=== PATIENT | female | born 1935 | race Caucasian/White ===

== ENCOUNTER 2019-09-11 20:21 | Inpatient (IN) ==
[2019-09-11] MEDS ORDERED: NS 1,000 ML IV ONE (21:09)
[2019-09-11] MEDS ORDERED: ZOFRAN IV ONE (21:09)
[2019-09-11] MEDS ORDERED: MORPHINE IV ONE (21:09)
[2019-09-11] MEDS ORDERED: TESSALON PO ONE (21:09)
--- NOTE | 2019-09-11 21:24 | Diag Imaging Result Doc PS360 ---
EXAM: CHEST-1 VIEW 09/11/2019 HISTORY: cough, sob TECHNIQUE: AP portable at 2115 COMMENT: There is questionable opacification in the costophrenic angle regions. The study is slightly underexposed. There are no previous studies. The heart size is not enlarged. IMPRESSION: Questionable atelectasis in the lower lobes bilaterally. Electronically signed by Darren Bess 09/11/2019 9:21 PM
[2019-09-11 21:31] LABS: EOS# 0.01 X1000 (0.0-0.7); EOS% 0.1 % (0.0-10.0); HEMATOCRIT 38.5 % (37.0-47.0); HEMOGLOBIN 12.8 g/dL (12.0-16.0); IMM GRAN# 0.02 X1000 (0.0-0.04); IMM GRAN% 0.2 % (0.0-0.5); LYMPH# 0.53 X1000 (1.2-3.4); MCH 27.2 PG (27-31); MCHC 33.2 g/dL (33-37); MCV 81.7 FL (81-99); MONO# 0.36 X1000 (0.11-0.59); MONO% 2.7 % (1.7-9.3); MPV 11.4 FL (7.4-10.4); NEUT# 12.24 X1000 (1.4-6.5); PLT 227 X1000 (130-400); RBC 4.71 XMIL (4.2-5.4); RDW 13.3 % (11.5-14.5); WBC 13.16 X1000 (4.8-10.8)
[2019-09-11 21:52] LABS: AGAP 15; ALB/GLOB RATIO 1.5; ALBUMIN 3.8 g/dL (3.5-5.0); ALKALINE PHOSPHATASE 77 U/L (32-104); BUN 20 mg/dL (8-22); CALCIUM 9.9 mg/dL (8.8-10.2); CHLORIDE 95 mmol/L (98-107); COSMO 276; CREATININE 0.8 mg/dL (0.5-0.9); ESTIMATED GFR > 60; GLUCOSE 196 mg/dL (70-104); GOT 12 U/L (10-30); GPT 5 U/L (10-36); SODIUM 134 mmol/L (136-145); TCO2 24 mmol/L (25-35); TOTAL PROTEIN 6.4 g/dL (6.3-8.3)
[2019-09-11] MEDS ORDERED: LEVAQUIN 750 MG/D5W 750 MG/150 ML IVPB IV ONE (23:30)
--- NOTE | 2019-09-11 23:46 | PROVIDER DOCUMENTATION ---
This chart was entered by Jeovany Oates Scribe, acting as scribe for Malik Yo MD. HPI-Chest Pain - General Chief Complaint: Chest Pain Stated Complaint: chest tightness Time Seen by Provider: 09/11/19 21:01 Source: patient, family Allergies/Adverse Reactions: Patient Allergies Allergy/AdvReac Type Severity Reaction Status Date / Time No Known Allergies Allergy Verified 09/11/19 21:09 - History of Present Illness-CP Nature of Presenting Problem: 83 yof presents to the ed with sinus/cold like problems and chest pains. pt states onset for 2 weeks. pt states this morning woke up was getting better , felt like crap laid around then went to bed later. pt states having onset chest pains occasionally (tightness). pt states " my heart skips beats sometimes" pt sates having force herself to vomit. Location: reports: other (pt states Lt side) Chest Pain Radiation: reports: no radiation Quality of Pain: reports: tightness Severity in ED: mild Onset/Duration: other (2 weeks) Timing: still present Context/Activities at Onset: reports: none Modifying Factors: worse with: movement Associated Symptoms: reports: nausea. denies: abdominal pain, fever/chills Aspirin Treatment Today: unknown Similar Symptoms Previously?: Yes (chest pains ) Recently Seen Here or By Another Healthcare Provider: No Review of Systems - Adult - REVIEW OF SYSTEMS - ADULT Constitutional: reports: no symptoms reported Eyes: reports: no symptoms reported Ears, Nose, Mouth & Throat: reports: see HPI, sinus problem. denies: ear pain, hoarseness Cardiovascular: reports: see HPI, chest pain. denies: heart murmur, palpitations Respiratory: reports: see HPI, cough. denies: shortness of breath, wheezing Gastrointestinal: reports: see HPI, nausea, vomiting. denies: abdominal pain, constipation, diarrhea Genitourinary: reports: no symptoms reported Musculoskeletal: reports: no symptoms reported Integumentary: reports: no symptoms reported Neurological: reports: no symptoms reported Psychiatric: reports: no symptoms reported Endocrine: reports: no symptoms reported Hematologic/Lymphatic: reports: no symptoms reported Allergic/Immunologic: reports: no symptoms reported All Other Systems: Reviewed and Negative Past History - Adult - PAST MEDICAL HISTORY-ADULT Review of Records: reports: Old Records Reviewed, Nursing Assessment Review, Medications Reviewed, Social history reviewed & non-contributory. Major Childhood Illnesses: reports: denies history Cardiovascular: reports: HTN Respiratory: reports: denies history Gastrointestinal: reports: denies history Obstetrical/Gynecological: reports: denies history Genitourinary: reports: denies history Musculoskeletal: reports: denies history Neurological: reports: denies history Psychiatric: reports: denies history Endocrine/Immune: reports: Diabetes Other Conditions: reports: denies history - PRIOR SURGERIES/PROCEDURES Surgical/Procedure History: reports: cholecystectomy, hysterectomy, , joint replacement (hip/knee) - IMMUNIZATION STATUS Childhood Immunizations: See Nurse Assessment Flu Vaccine: See Nurse Assessment - FAMILY HISTORY Family History: reviewed, not pertinent - SOCIAL HISTORY Smoking: quit greater than 1 year, cigarettes Substance Use: denies Physical Exam-General - PHYSICAL EXAM-ADULT Initial Vital Signs Reviewed: Yes - CONSTITUTIONAL General Appearance: appears well, alert, mild distress - CARDIOVASCULAR Cardiovascular: tachycardia (108) - CHEST (BREASTS) Chest/Breast: deferred - GENITOURINARY Female Genitalia/Pelvic Exam: deferred Hemoccult Exam: deferred - NEUROLOGIC Neurologic: grossly normal, no motor/sensory deficits - PSYCHIATRIC Psych/Mental Status: normal mood/affect, normal thought content, normal thought process, oriented x 3 - HEART Score HEART Score: Age: > or = 65 Years Progress - PLAN OF CARE/RESULTS Progress/Plan/Lab Results: Vital Signs - 8 hr 09/11/19 20:39 Temperature 98.8 F Pulse Rate 108 H Respiratory Rate 12 Blood Pressure 182/103 O2 Sat by Pulse Oximetry 93 L 09/11/19 21:18 Influenza Screen - Final Nasopharyngeal Laboratory Results - last 24 hr 09/11/19 09/11/19 09/11/19 21:18 21:18 21:18 WBC 13.16 H RBC 4.71 Hgb 12.8 Hct 38.5 MCV 81.7 MCH 27.2 MCHC 33.2 RDW Std Deviation 13.3 Plt Count 227 MPV 11.4 H Immature Gran % (Auto) 0.2 Neut % (Auto) 93.0 H Lymph % (Auto) 4.0 L Stark % (Auto) 2.7 Eos % (Auto) 0.1 Baso % (Auto) 0.0 Immature Gran # (Auto) 0.02 Neut # (Auto) 12.24 H Lymph # (Auto) 0.53 L Stark # (Auto) 0.36 Eos # (Auto) 0.01 Baso # (Auto) 0.00 Sodium 134 L Potassium 4.0 Chloride 95 L Carbon Dioxide 24 L Anion Gap 15 BUN 20 Creatinine 0.8 Estimated GFR/1.73 m2 > 60 BUN/Creatinine Ratio 25 Glucose 196 H Calculated Osmolality 276 Calcium 9.9 Total Bilirubin 0.60 AST 12 ALT 5 L Alkaline Phosphatase 77 Troponin T Vpe-X-Zzhggsavpun Pept 444 Total Protein 6.4 Albumin 3.8 Globulin 2.6 Albumin/Globulin Ratio 1.5 09/11/19 21:18 WBC RBC Hgb Hct MCV MCH MCHC RDW Std Deviation Plt Count MPV Immature Gran % (Auto) Neut % (Auto) Lymph % (Auto) Stark % (Auto) Eos % (Auto) Baso % (Auto) Immature Gran # (Auto) Neut # (Auto) Lymph # (Auto) Stark # (Auto) Eos # (Auto) Baso # (Auto) Sodium Potassium Chloride Carbon Dioxide Anion Gap BUN Creatinine Estimated GFR/1.73 m2 BUN/Creatinine Ratio Glucose Calculated Osmolality Calcium Total Bilirubin AST ALT Alkaline Phosphatase Troponin T < 0.010 Occ-H-Lktnyqppdyd Pept Total Protein Albumin Globulin Albumin/Globulin Ratio Orders Category Date Time Status CHEST-1 VIEW [RAD] Stat Exams 09/11/19 21:08 Completed CBC WITH ELECTRONIC DIFF [HEME] Stat Lab 09/11/19 21:18 Completed COMPREHENSIVE METABOLIC PANEL [CHEM] Stat Lab 09/11/19 21:18 Completed INFLUENZA SCREEN A/B Stat Lab 09/11/19 21:18 Completed PRO B-NATRIURETIC PEPTIDE Stat Lab 09/11/19 21:18 Completed TROPONIN T Stat Lab 09/11/19 21:18 Completed URINALYSIS [URINALYSIS] Stat Lab 09/11/19 21:08 Uncollected 0.9% Sodium Chloride Inj [Ns] 1,000 ml Med 09/11/19 21:09 Discontinued IV 999 mls/hr Benzonatate [Tessalon] Med 09/11/19 21:09 Discontinued 200 mg PO NOW ONE Levofloxacin 750 mg/D5w [Levaquin 750 mg/D5w] Med 09/11/19 23:30 Active 750 mg in 150 ml IV NOW Morphine Med 09/11/19 21:09 Discontinued 2 mg IV NOW ONE Ondansetron [Zofran] Med 09/11/19 21:09 Discontinued 4 mg IV NOW ONE EKG [EKG] Stat Ther 09/11/19 20:28 Ordered Result Diagrams: 09/11/19 21:18 09/11/19 21:18 - EKG 1 Time of EKG reading by physician:: 21:04 EKG Read and Signed by:: Malik Yo EKG Interpretation (*Must complete 3 of following elements*): Abnormal Rate: 109 Rhythm: sinus tachycardia w/ 1st degree AV block [place]: normal QRS: normal NC Interval: normal ST Wave: normal Comments: Lt anterior fascicular block - XRAY 1 XRAY Study: Chest Impression: See EMR Report (EXAM: CHEST-1 VIEW 09/11/2019 HISTORY: cough, sob TECHNIQUE: AP portable at 2114 COMMENT: There is questionable opacification in the costophrenic angle regions. The study is slightly underexposed. There are no previous studies. The heart size is not enlarged. IMPRESSION: Questionable atelectasis in the lower lobes bilaterally. Electronically signed by Darren Bess 09/11/2019 9:21 PM 09/11/192120 Interpreting Physician: Darren Bess MD Dictated Date/Time: 09/11/192120 cc: Malik Yo MD; Papa Monae MD) Departure - Departure Date of Disposition Decision: 09/11/19 Time of Disposition Decision: 23:45 DIAGNOSIS: Hypoxia Pneumonia Qualifiers: Pneumonia type: due to unspecified organism Laterality: right Lung location: lower lobe of lung Qualified Code(s): J18.1 - Lobar pneumonia, unspecified organism Disposition: ADMITTED INPATIENT 09 Certified Medical Emergency: Emergent Condition: Stable Referrals and Follow-Ups: Papa Monae MD [Primary Care Provider] - - Critical Care Note This patient required my direct & personal management of CC.: No Attestation - Physician/ SHAN Attestation Patient care was provided by Advanced Practice Provider:: No The physician spent face to face time with patient:: Yes Advanced Practice Provider documentation review:: Supervising physician onsite and consulted in the evaluation and care of this patient. The physician did have a face to face encounter with the patient. This chart was documented by the indicated scribe, (Jeovany Oates Scribe) and accurately reflects the services I performed and decisions made by me, Malik Yo MD, as attested by the provider's signature.
--- NOTE | 2019-09-12 01:24 | HISTORY AND PHYSICAL ---
PRIMARY CARE PHYSICIAN: Patient of Dr. Monae. REASON FOR ADMISSION: One-week history of progressive shortness of breath and cough productive of yellowish sputum. HISTORY OF PRESENT ILLNESS: Ms. Clary Diaz is an 83-year-old woman with past medical history of type 2 diabetes and hypertension who comes in today complaining of 1-week history of progressive shortness of breath, cough productive of yellowish sputum, but no fever and chills. This was preceded by 3 to 4 day history of "sinus infection." She tried elqi-utv-awwixri remedies with some modest success, but over the last couple days the symptoms got worse. She denies any particular close contacts. Denies any PND, orthopnea. She admits to having some chest pain in the left chest wall and it is worse with movement of her trunk, but no cough. No palpitations or lightheadedness. No associated anginal equivalent. REVIEW OF SYSTEMS: Notable for 3 loose, nonbloody stools. No abdominal pain. No genitourinary complaints. No focal neurological complaints. No polyuria or polydipsia. Otherwise, 12 system review was done. Positive findings per HPI. No pruritus. ALLERGIES: She says she is allergic to prednisone and penicillin. MEDICATION: Her medications are not listed at this time but metformin is 1 of them. SURGICAL HISTORY: Notable for hysterectomy, cholecystectomy, and cataract surgery, hemorrhoidectomy, knee surgery, hip surgery. FAMILY HISTORY: Notable for heart disease but no diabetes. SOCIAL HISTORY: She does not smoke, drink, or use drugs. Lives with her granddaughter. PHYSICAL EXAMINATION: GENERAL: Obese, elderly woman, no acute distress. A and O x3. Normal mood and affect. HEENT: Head is normocephalic, atraumatic. Eyes, TRAVON, EOMI. She is anicteric, not pale. ENT, oropharyngeal exam is grossly normal. No central cyanosis. NECK: Short and thick. No JVD or carotid bruit. No thyromegaly. VITAL SIGNS: Her blood pressure is 182/103, pulse is 108, respiratory rate 12, temperature is 98.8 degrees. She is 92% on room air. However, when she ambulates a few steps she desaturates into the low 80s. She also becomes very symptomatic and her heart rate goes up in the 120s. CHEST: Bibasilar crepitations are heard. No wheezes. CARDIOVASCULAR: First second heart sounds heard, 3/6 pansystolic murmur heard in the aortic area radiating to the neck. Her rhythm is regular. ABDOMEN: Protuberant and soft with mild tenderness in the right upper quadrant area. Bowel sounds are hypoactive. RECTAL: Exam deferred at this time. EXTREMITIES: No edema, clubbing or cyanosis. Pulses distally have good volume, regular, symmetrical. NEUROLOGICAL: No gross focal deficits. SKIN: Intact with no breakdown or lesion. Good turgor. MUSCULOSKELETAL: Muscular exam is grossly normal. ASSESSMENT: 1. Probable pneumonia. 2. Type 2 diabetes. 3. Hypertension. 4. Dehydration. PLAN: The patient will be admitted and started on Levaquin due to her questionable history allergies to penicillin. She will need an EKG done in 24 hours to make sure no QT prolongation ensues. In the meantime, she will be given breathing treatments. She will be on a sliding scale for her for diabetes but hold blood pressure medication. In the interim, we will consider starting patient on an ARB pending her home medications which she has no recollection of at this point in time. The patient might also need to be evaluated for short-term home O2 prior to discharge. I will order a noncontrast study to confirm my suspicion of possible pneumonia. Also, an echocardiogram needs to be ordered in view of the fact patient has a pansystolic murmur which she is not aware of, could be representing aortic stenosis. cc: MD Papa Bill MD MTDD
[2019-09-12] MEDS ORDERED: NS 1,000 ML IV SCH (01:38)
[2019-09-12] MEDS ORDERED: ZOFRAN IV PRN (01:38)
[2019-09-12] MEDS ORDERED: TYLENOL PO PRN (01:38)
--- NOTE | 2019-09-12 01:38 | EKG Report ---
Test Performed on : 09/11/2019 9:04:15 PM Test Reason : cp Blood Pressure : / mmHG Vent. Rate : 109 BPM Atrial Rate : 109 BPM P-R Int : 212 ms QRS Dur : 088 ms QT Int : 324 ms P-R-T Axes : 063 -53 045 degrees QTc Int : 436 ms Sinus tachycardia. with 1st degree AV block. Left anterior fascicular block Abnormal ECG No previous ECGs available Unconfirmed Result
[2019-09-12] MEDS: LOVENOX SUBQ SCH (02:07)
[2019-09-12] MEDS: COZAAR PO SCH ×3 (02:07→22:08)
[2019-09-12 04:23] LABS: BILIRUBIN URINE NEGATIVE (NEGATIVE); BLOOD URINE NEGATIVE (NEGATIVE); COLOR YELLOW; GLUCOSE URINE NEGATIVE (NEGATIVE); KETONE URINE NEGATIVE (NEGATIVE); LEUKOCYTES URINE SMALL (NEGATIVE); NITRITE URINE NEGATIVE (NEGATIVE); PROTEIN URINE NEGATIVE (NEGATIVE); SP GRAVITY URINE 1.014; TURBIDITY URINE CLEAR (CLEAR); URINE SOURCE CLEAN CATCH; UROBILINOGEN URINE NORMAL (NORMAL)
[2019-09-12 04:24] LABS: UR EPITHELIAL CELLS <10 /HPF (<10); URINE BACTERIA NEGATIVE /HPF; URINE RBC <10 /HPF (<10)
[2019-09-12] MEDS: DUONEB (A & A) INH SCH ×3 (05:27→15:38)
--- NOTE | 2019-09-12 08:20 | Diag Imaging Result Doc PS360 ---
EXAM: CT THORAX W/O CONTRAST 09/12/2019 HISTORY: hypoxia ?PNA TECHNIQUE: This exam was performed using automated exposure control, adjustment of mA or kV according to patient size, and/or use of iterative reconstruction technique. COMMENT: There are no previous studies available for comparison. There are nonspecific mediastinal nodes. There are coronary calcifications. There is a small pericardial effusion. There are calcified granulomata in the right upper lobe and one in the left upper lobe. There are some interstitial and platelike opacities in the left base. There are severe degenerative disc changes in the visualized spine. There is vacuum joint phenomenon in both sternoclavicular joints. IMPRESSION: Atelectasis plus minus fibrosis in the left lower lobe. Granulomatous changes. Small pericardial effusion. Electronically signed by Darren Bess 09/12/2019 8:18 AM
[2019-09-12 08:28] LABS: EOS# 0.05 X1000 (0.0-0.7); EOS% 0.7 % (0.0-10.0); HEMATOCRIT 34.2 % (37.0-47.0); HEMOGLOBIN 10.9 g/dL (12.0-16.0); LYMPH# 0.96 X1000 (1.2-3.4); LYMPH% 14.3 % (20.5-51.1); MCH 26.9 PG (27-31); MCHC 31.9 g/dL (33-37); MCV 84.4 FL (81-99); MONO# 0.55 X1000 (0.11-0.59); MONO% 8.2 % (1.7-9.3); MPV 11.4 FL (7.4-10.4); NEUT# 5.16 X1000 (1.4-6.5); NEUT% 76.8 % (42.2-75.2); PLT 185 X1000 (130-400); RBC 4.05 XMIL (4.2-5.4); RDW 13.4 % (11.5-14.5); WBC 6.72 X1000 (4.8-10.8)
[2019-09-12 08:58] LABS: AGAP 12; BUN 15 mg/dL (8-22); CALCIUM 8.7 mg/dL (8.8-10.2); CHLORIDE 100 mmol/L (98-107); COSMO 275; CREATININE 0.8 mg/dL (0.5-0.9); ESTIMATED GFR > 60; GLUCOSE 133 mg/dL (70-104); MAGNESIUM 1.4 mg/dL (1.5-2.7); POTASSIUM 3.7 mmol/L (3.5-5.1); SODIUM 136 mmol/L (136-145); TCO2 24 mmol/L (25-35)
[2019-09-12] MEDS ORDERED: TESSALON PO SCH (09:00)
[2019-09-12] MEDS: TESSALON PO SCH ×3 (09:15→22:08)
[2019-09-12] MEDS ORDERED: MAGNESIUM SULFATE 2 GM/S.W.I. 2 GM/50 ML IVPB IV ONE (10:52)
[2019-09-12] MEDS: NORVASC PO SCH (11:08)
[2019-09-12] MEDS: HUMALOG SUBQ SCH ×3 (11:10→22:10)
--- NOTE | 2019-09-12 14:11 | EKG Report ---
Test Performed on : 09/12/2019 09:16:50 AM Test Reason : drugs abx Blood Pressure : / mmHG Vent. Rate : 084 BPM Atrial Rate : 084 BPM P-R Int : 216 ms QRS Dur : 094 ms QT Int : 396 ms P-R-T Axes : 029 -34 030 degrees QTc Int : 467 ms Sinus rhythm. with 1st degree AV block. Left axis deviation Abnormal ECG When compared with ECG of 11-SEP-2019 21:04, (Unconfirmed) No significant change was found Confirmed by Rodolfo BATISTA, Silas ([id number]) on 09/14/2019 8:16:22 AM
--- NOTE | 2019-09-12 19:31 | PROGRESS NOTE ---
DATE: 09/12/2019 SUBJECTIVE: Ms. Diaz was admitted with chest congestion, cough, wheezing, shortness of breath. The patient also had some nausea and vomiting and diarrhea. The patient was not responding to outpatient treatment. Her admission history physical is noted. OBJECTIVE: Vital signs: Reviewed. Neck: Supple. No JVD. Lungs: Bibasilar crepitations, occasional wheezing. CVS: S1 and S2 heard. Abdomen: Soft, nontender. Bowel sounds present. ENTRY LEVEL MANUFACTURING ENGINEER: Alert, awake. Able to move all 4 limbs. CONSIDERATION: 1. Acute bronchitis, not responding to outpatient treatment. We will continue IV antibiotics, bronchodilator treatments and symptomatic treatment. 2. Diabetes mellitus. 3. Hypomagnesemia. Will supplement magnesium. 4. Continue the rest of the treatment. Urinalysis did reveal a mild urinary tract infection. Culture result is pending. PLAN: Overall plan discussed with the patient, and she is in agreement. cc: Papa Monae MD
[2019-09-12] MEDS: GLUCOPHAGE XR PO SCH (22:08)
[2019-09-13] MEDS: DUONEB (A & A) INH SCH ×5 (00:31→21:43)
[2019-09-13 04:56] LABS: ALLEN TEST YES; BE 1.1 mmoll (-3.0-3.0); BLOOD TYPE ARTERIAL; HCO3-(ACT) 25.8 mmoll (20.0-26.0); METHB 1.2 % (0.0-1.5); O2(CT) 15.4 mL/dL (15.0-23.0); O2HB 96.1 % (95.0-99.0); PCO2(98.6) 45 mmHg (35-45); PO2(98.6) 99 mmHg (60-100); SAMPLE BLOOD; SAO2 98.2 % (95.0-100.0); THB 11.3 g/dL (11.5-17.4); pH(98.6) 7.38 (7.35-7.45)
[2019-09-13 04:58] LABS: MODALITY CANNULA
[2019-09-13] MEDS: HUMALOG SUBQ SCH ×5 (06:54→22:10)
[2019-09-13] MEDS: LOVENOX SUBQ SCH (06:58)
[2019-09-13] MEDS: COZAAR PO SCH ×2 (09:31→22:09)
[2019-09-13] MEDS: GLUCOPHAGE XR PO SCH (09:31)
[2019-09-13] MEDS: TESSALON PO SCH ×3 (09:31→22:10)
[2019-09-13] MEDS: NORVASC PO SCH (09:32)
--- NOTE | 2019-09-13 11:33 | PROGRESS NOTE ---
DATE: 09/13/2019 SUBJECTIVE: The patient says she feels a little bit better but she is still nauseated. The diarrhea has gone away. Her breathing is better. OBJECTIVE: Blood pressure is 124/38, respirations 16, pulse 74, temperature 98.3 degrees Fahrenheit, oxygen saturation on 2 L is 97%.HEENT: She is normocephalic. EOMS intact. PERRLA. Throat clear. Lungs: Sound fairly clear to auscultation today. I heard a little wheeze when she coughed, but overall better. Heart: Regular rate and rhythm without murmurs, gallops or friction rubs. Abdomen: Soft. Active bowel sounds. No organomegaly or tenderness though she still complains of her nausea. Neurological: Intact grossly. ASSESSMENT: 1. Acute bronchitis not responding to outpatient treatment. 2. Diabetes mellitus. 3. Hypomagnesemia for which she has received a supplement. 4. Acute gastroenteritis which is improving. PLAN: Continue with current treatment. cc: MD Papa Woo Jr, MD
[2019-09-13] MEDS: LEVAQUIN 500 MG/D5W 500 MG/100 ML IVPB IV SCH (22:09)
[2019-09-14] MEDS: DUONEB (A & A) INH SCH ×4 (02:50→23:22)
[2019-09-14] MEDS: HUMALOG SUBQ SCH ×4 (06:12→21:05)
[2019-09-14] MEDS: LOVENOX SUBQ SCH (06:16)
[2019-09-14 07:33] LABS: BASO# 0.01 X1000 (0.0-0.2); BASO% 0.2 % (0.0-0.8); EOS# 0.11 X1000 (0.0-0.7); EOS% 1.7 % (0.0-10.0); HEMATOCRIT 34.2 % (37.0-47.0); HEMOGLOBIN 10.7 g/dL (12.0-16.0); LYMPH# 1.52 X1000 (1.2-3.4); LYMPH% 23.6 % (20.5-51.1); MCH 26.6 PG (27-31); MCHC 31.3 g/dL (33-37); MCV 85.1 FL (81-99); MONO# 0.53 X1000 (0.11-0.59); MONO% 8.2 % (1.7-9.3); MPV 11.3 FL (7.4-10.4); NEUT# 4.27 X1000 (1.4-6.5); NEUT% 66.3 % (42.2-75.2); PLT 180 X1000 (130-400); RBC 4.02 XMIL (4.2-5.4); RDW 13.6 % (11.5-14.5); WBC 6.44 X1000 (4.8-10.8)
[2019-09-14 07:43] LABS: AGAP 12; ALB/GLOB RATIO 1.1; ALKALINE PHOSPHATASE 58 U/L (32-104); BUN 11 mg/dL (8-22); CALCIUM 8.9 mg/dL (8.8-10.2); CHLORIDE 103 mmol/L (98-107); COSMO 281; CREATININE 0.6 mg/dL (0.5-0.9); ESTIMATED GFR > 60; GLUCOSE 135 mg/dL (70-104); GOT 12 U/L (10-30); GPT 5 U/L (10-36); MAGNESIUM 1.6 mg/dL (1.5-2.7); PHOSPHORUS 3.5 mg/dL (2.7-4.5); POTASSIUM 3.4 mmol/L (3.5-5.1); SODIUM 140 mmol/L (136-145); TCO2 25 mmol/L (25-35); TOTAL BILIRUBIN 0.38 mg/dL (0.20-1.00); TOTAL PROTEIN 5.7 g/dL (6.3-8.3)
[2019-09-14] MEDS: COZAAR PO SCH ×2 (09:56→21:05)
[2019-09-14] MEDS: GLUCOPHAGE XR PO SCH (09:56)
[2019-09-14] MEDS: NORVASC PO SCH (09:56)
[2019-09-14] MEDS: TESSALON PO SCH ×3 (09:57→21:05)
[2019-09-14] MEDS ORDERED: KLOR-CON PO ONE ×2 (16:46→21:00)
[2019-09-14] MEDS ORDERED: LASIX IV ONE (16:59)
[2019-09-14] MEDS ORDERED: MAGNESIUM SULFATE 2 GM/S.W.I. 2 GM/50 ML IVPB IV ONE (17:01)
--- NOTE | 2019-09-14 17:54 | Diag Imaging Result Doc PS360 ---
CHEST-PORTABLE - 09/14/2019 INDICATION: sob COMPARISON: 09/11/2019 FINDINGS: There are some patchy central and bibasilar infiltrates or areas of atelectasis similar to prior. Heart size and pulmonary vascularity is grossly normal. No pneumothorax or pleural effusion. IMPRESSION: Patchy central and bibasilar infiltrate/atelectasis similar to prior. Electronically signed by Bandar Medrano 09/14/2019 5:52 PM
[2019-09-14 18:02] LABS: AGAP 14; BUN 9 mg/dL (8-22); CALCIUM 9.5 mg/dL (8.8-10.2); CHLORIDE 100 mmol/L (98-107); COSMO 279; CREATININE 0.7 mg/dL (0.5-0.9); ESTIMATED GFR > 60; GLUCOSE 143 mg/dL (70-104); POTASSIUM 3.5 mmol/L (3.5-5.1); SODIUM 139 mmol/L (136-145); TCO2 25 mmol/L (25-35)
--- NOTE | 2019-09-14 18:19 | PROGRESS NOTE ---
DATE: 09/14/2019 SUBJECTIVE: Ms. Diaz is doing fair. Complaining of cough with scanty sputum production. The patient is still requiring high concentration of oxygen in the morning. We were able to cut down to 2 L at times, she was requiring 6 L of oxygen. No fever or chills. The patient does get short of breath with exertion. No nausea or vomiting. Denied any chest pain. The patient did not have bowel movement since she came to hospital. OBJECTIVE: Vital Signs: Noted. Neck: Supple. No JVD. Lungs: Bilateral good air entry present. Few basal crepitations. Cardiovascular: S1 and S2 heard. Abdomen: Soft, globular. Bowel sounds present. INSPECTOR PRECISION: Alert, awake, able to move all four limbs. CONSIDERATION: Acute asthmatic bronchitis. Atelectasis. Diabetes mellitus, on Glucophage. Hypoxemia. Hypertension. Osteoarthritis. LABORATORY DATA: Lab done this morning revealed hypokalemia, will supplement potassium. PLAN: I am going to give her small dose of Lasix. Evaluate her for home oxygen need. If clinical condition permits, we will plan discharging patient home tomorrow morning. I will repeat chest x-ray. cc: Papa Monae MD
[2019-09-14] MEDS: LEVAQUIN 500 MG/D5W 500 MG/100 ML IVPB IV SCH (21:05)
[2019-09-15] MEDS: DUONEB (A & A) INH SCH ×2 (02:42→10:38)
[2019-09-15] MEDS: LOVENOX SUBQ SCH (06:27)
[2019-09-15] MEDS: HUMALOG SUBQ SCH ×2 (06:28→11:43)
[2019-09-15] MEDS ORDERED: BREO ELLIPTA 100/25 MCG INH INH SCH (07:30)
[2019-09-15 08:54] LABS: AGAP 13; ALB/GLOB RATIO 1.2; ALBUMIN 3.4 g/dL (3.5-5.0); ALKALINE PHOSPHATASE 61 U/L (32-104); BUN 8 mg/dL (8-22); CALCIUM 9.7 mg/dL (8.8-10.2); CHLORIDE 100 mmol/L (98-107); COSMO 276; CREATININE 0.7 mg/dL (0.5-0.9); ESTIMATED GFR > 60; GLUCOSE 136 mg/dL (70-104); GOT 14 U/L (10-30); GPT 6 U/L (10-36); POTASSIUM 4.1 mmol/L (3.5-5.1); SODIUM 138 mmol/L (136-145); TCO2 25 mmol/L (25-35); TOTAL BILIRUBIN 0.59 mg/dL (0.20-1.00); TOTAL PROTEIN 6.2 g/dL (6.3-8.3)
[2019-09-15 09:42] LABS: HEMOGLOBIN A1C 7.6 % (4.8-6.0)
[2019-09-15] MEDS: COZAAR PO SCH (10:25)
[2019-09-15] MEDS: GLUCOPHAGE XR PO SCH ×2 (10:26→10:29)
[2019-09-15] MEDS: NORVASC PO SCH (10:26)
[2019-09-15] MEDS: TESSALON PO SCH (10:26)
[2019-09-15 11:30] VITALS: BP 134/58
--- NOTE | 2019-10-16 20:38 | DISCHARGE SUMMARY ---
ADMISSION DATE: 09/12/2019 DISCHARGE DATE: 09/15/2019 FINAL DISCHARGE DIAGNOSES: 1. Acute asthmatic bronchitis, possible pneumonia. 2. Atelectasis. 3. Diabetes mellitus. 4. Hypoxemia. 5. Hypertension. 6. Osteoarthritis. 7. Hypokalemia. HISTORY OF PRESENT ILLNESS: Ms. Diaz is an 83-year-old white female patient admitted with cough productive of yellowish sputum, but no fever and chills. It was preceded by a 3 to 4-day history of sinus infection. The patient took eujc-dwc-uzjgelo medication without significant relief. Denied any orthopnea or PND. The patient did have some chest pain. The patient did have some loose stools and vague abdominal pain. The patient came to the ER. Evaluated by the ER physician. Consideration was probable pneumonia, hypertension and dehydration. Workup in the emergency room including chest x-ray revealed questionable atelectasis in the left lower lobe. The patient had a CT scan of the chest done which revealed atelectasis plus-minus fibrosis in the left lower lobe, granulomatous changes, and small pericardial effusion. The patient was treated with IV antibiotics, pulmonary toilet, and bronchodilator care. Her clinical condition gradually improved. Initially, the patient was quite hypoxemic, requiring a higher concentration of oxygen, but it improved. LABORATORY DATA: Initially the patient did have leukocytosis, but the day prior to admission, her white count improved to 6.44. Her hemoglobin was 10.7, hematocrit 34.2. Blood gas: pH of 7.38, pCO2 of 45, pO2 of 99. This was done on 2 L via nasal cannula. Electrolytes done on the day of discharge: Sodium 138, potassium 4.1, chloride 100, carbon dioxide 25. BUN was 8, creatinine 0.7. Her BNP was 489. PHYSICAL EXAMINATION AT DISCHARGE: Vital signs: Reviewed. Neck: Supple. No JVD. Lungs: Bibasilar crepitation. Heart: S1 and S2 heard. Abdomen: Soft, globular. Bowel sounds present. STAGE MANAGER: Alert, awake, able to move all 4 limbs. DISCHARGE PLAN: Overall, the patient received maximum benefit of hospitalization, and I decided to discharge patient home. She will finish her Ceftin, take medicine regularly, monitor Accu- Cheks. Follow up with me in 5 to 6 days. In case of more distress, call us back or go to the emergency room. OVERALL DISCHARGE CONDITION: Satisfactory. cc: Papa Monae MD
== END 2019-09-15 12:45 | disposition home or self-care (01) | DRG 202 ==
LOC: EDBD → SUPCPDRO → ED 20:21 → 3N 09-12 00:08 → SUATTDRO 09-12 00:08
PROVIDERS: ADMIT Internal Medicine; ATTEND Internal Medicine